=== PATIENT | female | born 1990 | race Hispanic/Latino ===

== ENCOUNTER 2019-01-16 13:27 | Emergency (ER) | payer BC, SELFPAY ==
--- NOTE | 2019-01-16 15:14 | RAD REPORT ---
EXAM DESCRIPTION: RAD - Chest Single View - 01/16/2019 2:52 pm CLINICAL HISTORY: Palpitations, chest discomfort COMPARISON: None. TECHNIQUE: AP portable chest image was obtained 1450 hours . FINDINGS: Lungs are clear. Heart and vasculature are normal. No measurable pleural effusion and no p neumothorax. No acute bony abnormality seen. No acute aortic findings suspected. IMPRESSION: No acute cardiopulmonary process.
[2019-01-16 15:44] LABS: Urine Blood TRACE (NEG); Urine Glucose NEGATIVE (NEG); Urine Protein NEGATIVE (NEG)
[2019-01-16 15:47] LABS: Absolute Lymphocytes (CBC) 1.8 K/uL (0.7-4.9); Absolute Monocytes 0.4 K/uL (0.1-1.3); Absolute Neutrophil 8.6 K/uL (1.8-8.0); Basophils % 0.2 % (0-1.3); Eosinophils % 0.4 % (0-4.4); Hematocrit 39.8 % (36.0-45.0); Lymphocytes % 16.4 % (15.3-44.8); MPV 11.6 fL (7.6-11.3); RBC Red Blood Cell Count 4.34 M/uL (3.86-4.86)
[2019-01-16 16:53] LABS: BUN Blood Urea Nitrogen 10 mg/dL (7-18); Bicarbonate 26 mmol/L (21-32); Glucose Level 94 mg/dL (74-106); Potassium 3.7 mmol/L (3.5-5.1); Sodium Level 142 mmol/L (136-145); Thyroid Stimulating Hormone 0.748 uIU/mL (0.360-3.740)
--- NOTE | 2019-01-16 16:58 | ER ---
Nurse's Notes [facility] Name: Kathy Aleman Age: 28 yrs Sex: Female : 1990 Arrival Date: 01/16/2019 Time: 13:29 Bed 15 Private MD: Diagnosis: Palpitations Presentation: 01/16 13:36 Presenting complaint: Patient states: intermittent palpitations that began 6 days ago. ss Pt reports that when she feels the palpitations, it makes her very anxious and then she is unable to breath. Transition of care: patient was not received from another setting of care. Onset of symptoms was January 10, 2019. Risk Assessment: Do you want to hurt yourself or someone else? Patient reports no desire to harm self or others. Initial Sepsis Screen: Does the patient meet any 2 criteria? No. Patient's initial sepsis screen is negative. Does the patient have a suspected source of infection? No. Patient's initial sepsis screen is negative. Care prior to arrival: None. 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 - Social history:: Smoking status: Patient/guardian denies using tobacco. - Ebola Screening: : Patient denies exposure to infectious person Patient denies travel to an Ebola-affected area in the 21 days before illness onset. - Family history:: not pertinent. - Hospitalizations: : No recent hospitalization is reported. Screenin:15 Abuse screen: Denies threats or abuse. Denies injuries from another. Nutritional hj screening: No deficits noted. Tuberculosis screening: No symptoms or risk factors identified. Fall Risk None identified. Assessment: 13:43 General: Appears uncomfortable, Behavior is cooperative, anxious, Denies fever, feeling ss ill, fatigue, chills. Pain: Denies pain. Neuro: Level of Consciousness is awake, alert, obeys commands. Cardiovascular: Capillary refill < 3 seconds is brisk in bilateral fingers. Respiratory: Airway is patent Respiratory effort is even, unlabored, Respiratory pattern is regular, symmetrical. EENT: Throat is clear. Derm: Skin is intact, is healthy with good turgor, Skin is pink, warm \T\ dry. normal. 17:15 Pain: Pain does not radiate. hj 17:16 Pain: Pain began 6 days ago;. hj Vital Signs: 13:36 BP 147 / 96; Pulse 102; Resp 18; Temp 98.6(TE); Pulse Ox 100% on R/A; Weight 74.84 kg; ss Height 5 ft. 4 in. (162.56 cm); Pain 0/10; 17:14 BP 115 / 81; Pulse 72; Resp 18; Pulse Ox 100% on R/A; hj 13:36 Body Mass Index 28.32 (74.84 kg, 162.56 cm) ED Course: 13:29 Patient arrived in ED. rg4 13:37 Triage completed. ss 13:38 Arm band placed on left wrist. ss 13:52 Ferdinand Franco MD is Attending Physician. rn 13:52 EKG done, by body technician/painter. reviewed by Ferdinand Franco MD. at1 14:52 XRAY Chest (1 view) In Process Unspecified. EDMS 14:52 Gato Saunders RN is Primary Nurse. jl7 16:57 Anton Siddiqui MD is Referral Physician. rn 17:15 Patient has correct armband on for positive identification. Placed in gown. Bed in low hj position. Call light in reach. Side rails up X 1. Adult w/ patient. 17:15 No provider procedures requiring assistance completed. IV discontinued, intact, hj bleeding controlled, No redness/swelling at site. Pressure dressing applied. Patient maintains SpO2 saturation greater than 95% on room air. 17:16 net developer on. Pulse ox on. NIBP on. hj Administered Medications: No medications were administered Outcome: 16:58 Discharge ordered by . rn 17:15 Discharged to home ambulatory, with family. hj 17:15 Condition: stable 17:15 Discharge instructions given to patient, family, Instructed on discharge instructions, follow up and referral plans. Demonstrated understanding of instructions, follow-up care. 17:17 Patient left the ED. hj Signatures: Dispatcher [employer] EDMS Ferdinand Franco MD MD rn Smirch, Shelby, RN RN Eleanor Daniels, research and development scientist EKG Tat1 Mayank Fleming, RN RN Eunice Law rg4 Gato Saunders RN RN jl7 Corrections: (The following items were deleted from the chart) 13:44 13:43 General: Appears uncomfortable, Behavior is calm, cooperative, Denies fever, ss feeling ill, fatigue, chills, ss
--- NOTE | 2019-01-16 16:58 | EDPHYS ---
Physician Documentation [facility] Name: Kathy Aleman Age: 28 yrs Sex: Female : 1990 Arrival Date: 01/16/2019 Time: 13:29 Bed 15 Private MD: ED Physician Ferdinand Franco HPI: 01/16 16:22 This 28 yrs old Female presents to ER via Ambulatory with complaints of rn Palpitations, Chest Pressure. 16:22 The patient presents with a history of heart racing. Context: The symptoms occur at rn rest. Onset: The symptoms/episode began/occurred 1 week(s) ago. Duration: The patient or guardian reports multiple episodes, that are intermittent. Modifying factors: The symptoms are aggravated by nothing. The symptoms are alleviated by nothing. Severity of symptoms: At their worst the symptoms were moderate in the emergency department the symptoms have improved. The patient has not experienced similar symptoms in the past. The patient has not recently seen a physician. Reports mother with thyroid problems, has been having several episodes of tachycardia and palpitations where heart rate goes up to 140s, no syncope, chest feels tight during episodes, last for a few minutes, calms herself down and goes away on its own. Currently asymptomatic. . 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 - Social history:: Smoking status: Patient/guardian denies using tobacco. - Ebola Screening: : Patient denies exposure to infectious person Patient denies travel to an Ebola-affected area in the 21 days before illness onset. - Family history:: not pertinent. - Hospitalizations: : No recent hospitalization is reported. ROS: 16:22 Constitutional: Negative for fever, chills, and weight loss, Eyes: Negative for injury, rn pain, redness, and discharge, Neck: Negative for injury, pain, and swelling, Cardiovascular: Negative for edema Respiratory: Negative for shortness of breath, cough, wheezing, and pleuritic chest pain, Abdomen/GI: Negative for abdominal pain, nausea, vomiting, diarrhea, and constipation, MS/Extremity: Negative for injury and deformity, Skin: Negative for injury, rash, and discoloration, Neuro: Negative for headache, weakness, numbness, tingling, and seizure. Exam: 16:22 Constitutional: This is a well developed, well nourished patient who is awake, alert, rn and in no acute distress. Head/Face: Normocephalic, atraumatic. Eyes: Pupils equal round and reactive to light, extra-ocular motions intact. Lids and lashes normal. Conjunctiva and sclera are non-icteric and not injected. Cornea within normal limits. Periorbital areas with no swelling, redness, or edema. ENT: MMM Cardiovascular: Regular rate and rhythm with a normal S1 and S2. No gallops, murmurs, or rubs. No JVD. No pulse deficits. Respiratory: Lungs have equal breath sounds bilaterally, clear to auscultation. No increased work of breathing, no retractions or nasal flaring. Skin: Warm, dry with normal turgor. Normal color with no rashes, no lesions, and no evidence of cellulitis. MS/ Extremity: Pulses equal, no cyanosis. Neurovascular intact. Full, normal range of motion. Equal circumference. Neuro: Awake and alert, GCS 15, oriented to person, place, time, and situation. Cranial nerves II-XII grossly intact. Motor strength 5/5 in all extremities. Sensory grossly intact. Cerebellar exam normal. Normal gait. Vital Signs: 13:36 BP 147 / 96; Pulse 102; Resp 18; Temp 98.6(TE); Pulse Ox 100% on R/A; Weight 74.84 kg; ss Height 5 ft. 4 in. (162.56 cm); Pain 0/10; 17:14 BP 115 / 81; Pulse 72; Resp 18; Pulse Ox 100% on R/A; hj 13:36 Body Mass Index 28.32 (74.84 kg, 162.56 cm) ss MDM: 13:52 Patient medically screened. rn 16:56 Data reviewed: vital signs, nurses notes, lab test result(s), EKG, radiologic studies, rn and as a result, I will discharge patient. Counseling: I had a detailed discussion with the patient and/or guardian regarding: the historical points, exam findings, and any diagnostic results supporting the discharge/admit diagnosis, lab results, radiology results, the need for outpatient follow up, to return to the emergency department if symptoms worsen or persist or if there are any questions or concerns that arise at home. Response to treatment: the patient's condition has returned to base line, and as a result, I will discharge patient. Special discussion: I discussed with the patient/guardian in detail that at this point there is no indication for admission to the hospital. It is understood, however, that if the symptoms persist or worsen the patient needs to return immediately for re-evaluation. Further emergent ED testing is not indicated at this point in time. I discussed with the patient/guardian in detail the need to arrange with the PCP or specialist further outpatient testing, holter. Based on the history and exam findings, there is no indication for further emergent testing or inpatient evaluation. I discussed with the patient/guardian the need to see the wall taper helper for further evaluation of the symptoms. 01/16 14:02 Order name: CBC with Diff; Complete Time: 16:37 rn 01/16 14:02 Order name: Basic Metabolic Panel; Complete Time: 16:55 rn 01/16 14:02 Order name: TSH; Complete Time: 16:55 rn 01/16 14:02 Order name: T4 Free; Complete Time: 16:55 rn 01/16 15:41 Order name: Urine Dipstick--Ancillary (enter results); Complete Time: 16:37 bd 01/16 15:41 Order name: Urine --Ancillary (enter results); Complete Time: 16:37 bd 01/16 13:38 Order name: EKG; Complete Time: 13:38 ss 01/16 13:38 Order name: EKG - Nurse/Tech; Complete Time: 13:46 ss 01/16 14:02 Order name: IV Start; Complete Time: 16:46 rn 01/16 14:02 Order name: XRAY Chest (1 view); Complete Time: 15:34 rn 01/16 14:02 Order name: Urine Dipstick-Ancillary (obtain specimen); Complete Time: 16:44 rn 01/16 14:02 Order name: Urine Test (obtain specimen); Complete Time: 16:43 rn Administered Medications: No medications were administered Disposition: 01/16/19 16:58 Discharged to Home. Impression: Palpitations. - Condition is Stable. - Discharge Instructions: Holter Monitoring, Palpitations. - Medication Reconciliation Form, Thank You Letter, Antibiotic Education, Prescription Opioid Use form. - Follow up: Anton Siddiqui MD; When: As needed; Reason: Recheck today's complaints, Re-evaluation by your physician. - Problem is new. - Symptoms have improved. Signatures: Dispatcher [employer] EDMS Ferdinand Franco MD MD rn Smirch, Shelby, RN RN ss Joaquin, Henry, RN RN hj Corrections: (The following items were deleted from the chart) 17:17 16:58 01/16/2019 16:58 Discharged to Home. Impression: Palpitations. Condition is hj Stable. Forms are Medication Reconciliation Form, Thank You Letter, Antibiotic Education, Prescription Opioid Use. Follow up: Anton Siddiqui; When: As needed; Reason: Recheck today's complaints, Re-evaluation by your physician. Problem is new. Symptoms have improved. rn
--- NOTE | 2019-01-17 11:41 | EKG ---
Test Date: 2019-01-16 Test Time: 13:42:43 Gate Services Supervisor: KIESHA MEASUREMENT RESULTS: Intervals: Rate: 111 UT: 142 QRSD: 74 QT: 340 QTc: 462 [place]: P: 70 UT: 142 QRS: 66 T: 49 INTERPRETIVE STATEMENTS: Sinus tachycardia Otherwise normal ECG No previous ECG available for comparison Electronically Signed On 01-16-19 16:07:29 CDT by Lionel Wan
== END 2019-01-16 17:17 | disposition home or self-care (01) ==
LOC: ER 13:27
DX: R00.2 Palpitations (principal)
CPT/HCPCS: 36415; 71045; 80048; 81003; 81025; 84439; 84443; 85025; 93005; 99284

== ENCOUNTER 2019-01-18 13:23 | Emergency (ER) | payer BC ==
[2019-01-18 16:02] LABS: Absolute Lymphocytes (CBC) 1.9 K/uL (0.7-4.9); Absolute Monocytes 0.4 K/uL (0.1-1.3); Absolute Neutrophil 8.9 K/uL (1.8-8.0); Basophils % 0.3 % (0-1.3); Eosinophils % 0.4 % (0-4.4); Hematocrit 40.4 % (36.0-45.0); Lymphocytes % 16.6 % (15.3-44.8); MPV 11.9 fL (7.6-11.3); Monocytes % 3.6 % (3.3-12.3); RBC Red Blood Cell Count 4.33 M/uL (3.86-4.86)
[2019-01-18 16:06] LABS: Protime INR 0.96
[2019-01-18 16:13] LABS: ALT/SGPT 24 U/L (12-78); AST/SGOT 14 U/L (15-37); Albumin 3.9 g/dL (3.4-5.0); Alkaline Phosphatase 63 U/L (45-117); BUN Blood Urea Nitrogen 11 mg/dL (7-18); Bicarbonate 23 mmol/L (21-32); Bilirubin Direct 0.1 mg/dL (0-0.2); Bilirubin Total 0.4 mg/dL (0.2-1.0); Glucose Level 80 mg/dL (74-106); Magnesium 2.3 mg/dL (1.8-2.4); NT PRO-BNP 88 pg/mL (<125); Potassium 3.5 mmol/L (3.5-5.1); Protein, Total 7.7 g/dL (6.4-8.2); Sodium Level 142 mmol/L (136-145); Troponin (Emerg Dept Use Only) < 0.02 ng/mL (0.0-0.045)
--- NOTE | 2019-01-18 16:54 | RAD REPORT ---
EXAM DESCRIPTION: CT - Chest For Pe Angio - 01/18/2019 4:39 pm CLINICAL HISTORY: Chest pain, shortness of breath COMPARISON: Chest films same date. TECHNIQUE: Dynamically enhanced 3 mm thick images of the chest were obtained during administration o f approximately 150mL Isovue 370 IV contrast. Coronal and oblique MIP reconstruction images were gene rated and reviewed. Exam utilizes a protocol to evaluate the pulmonary arterial tree. All CT scans are performed using dose optimization technique as appropriate and may include automated exposure control or mA/KV adjustment according to patient size. FINDINGS: No pulmonary emboli are confirmed on this study. Exam has motion degradation limitation. T his creates some heterogeneity in the small or far peripheral branches. This also limits assessment o f the lung parenchyma. The aorta as imaged shows no acute or suspicious finding. No pericardial thickening or effusion. No focal mass or consolidation. No pleural effusion or pleural thickening. No mediastinal or hilar suspicious masses. No chest wall masses or abnormal axillary lymphadenopathy. IMPRESSION: No pulmonary emboli identified. No other significant or suspicious findings.
--- NOTE | 2019-01-18 17:34 | EDPHYS ---
Physician Documentation [facility] Name: Kathy Aleman Age: 28 yrs Sex: Female : 1990 Arrival Date: 01/18/2019 Time: 13:26 Bed 15 Private MD: ED Physician Brady Carter HPI: 01/18 14:00 This 28 yrs old Female presents to ER via Ambulatory with complaints of Chest cp Pressure, Back Pain, Breathing Difficulty. 14:00 The patient or guardian reports chest pain that is located primarily in the anterior cp chest wall. 14:00 The pain radiates to back. Associated signs and symptoms: Pertinent positives: cp shortness of breath. Duration: The patient or guardian reports a single episode, that is still ongoing, and unchanged. 14:00 The patient has been recently seen at the [facility] Emergency cp Department, this week, for similar complaints instructed to f/u with skatesman. 14:00 The chest pain is described as a pressure. 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 - Social history:: Smoking status: . - Ebola Screening: : Patient denies travel to an Ebola-affected area in the 21 days before illness onset. ROS: 14:05 Constitutional: Negative for body aches, chills, fever, poor PO intake. cp 14:05 Eyes: Negative for injury, pain, redness, and discharge. cp 14:05 Neck: Negative for pain with movement, pain at rest, stiffness. 14:05 Cardiovascular: Positive for chest pain, Negative for edema, palpitations. 14:05 Respiratory: Positive for shortness of breath, Negative for cough, wheezing. 14:05 Abdomen/GI: Negative for abdominal pain, nausea, vomiting, and diarrhea. 14:05 Back: Positive for radiated pain. 14:05 : Negative for urinary symptoms, vaginal bleeding. 14:05 Skin: Negative for rash. 14:05 Neuro: Negative for altered mental status, headache, weakness. 14:05 All other systems are negative. Exam: 13:45 ECG was reviewed by the Attending Physician. cp 14:10 Constitutional: The patient appears in no acute distress, alert, awake, cp non-diaphoretic, non-toxic, well developed, well nourished. 14:10 Head/Face: Normocephalic, atraumatic. Eyes: Pupils equal round and reactive to light, cp extra-ocular motions intact. Lids and lashes normal. Conjunctiva and sclera are non-icteric and not injected. Cornea within normal limits. Periorbital areas with no swelling, redness, or edema. ENT: Nares patent. No nasal discharge, no septal abnormalities noted. Tympanic membranes are normal and external auditory canals are clear. Oropharynx with no redness, swelling, or masses, exudates, or evidence of obstruction, uvula midline. Mucous membranes moist. Chest/axilla: Normal chest wall appearance and motion. Nontender with no deformity. No lesions are appreciated. 14:10 Cardiovascular: Rate: tachycardic, Rhythm: regular, Pulses: Pulses are 2+ in right radial artery and left radial artery. Edema: is not appreciated, JVD: is not appreciated. 14:10 Respiratory: the patient does not display signs of respiratory distress, Respirations: normal, no use of accessory muscles, no retractions, no splinting, no tachypnea, labored breathing, is not present, Breath sounds: are clear throughout, no decreased breath sounds, no stridor, no wheezing. 14:10 Abdomen/GI: Inspection: abdomen appears normal, Palpation: abdomen is soft and non-tender, in all quadrants. 14:10 Back: pain, that is mild, of the between shoulder blades, ROM is normal. 14:10 Skin: no rash present. 14:10 Neuro: Orientation: to person, place \T\ time. Mentation: is normal, Cerebellar function: is grossly normal, Motor: moves all fours, strength is normal, Sensation: is normal. Vital Signs: 13:34 BP 125 / 69; Pulse 103; Resp 18; Temp 97.8; Pulse Ox 100% on R/A; Weight 72.57 kg (R); tw2 Height 5 ft. 4 in. (162.56 cm) (R); Pain 8/10; 14:30 BP 112 / 72; Pulse 91; Resp 18; Pulse Ox 99% on R/A; ph 15:38 BP 108 / 71; Pulse 81; Resp 18; Pulse Ox 100% on R/A; ph 16:45 BP 111 / 76; Pulse 101; Resp 20; Pulse Ox 99% on R/A; ph 18:00 BP 112 / 72; Pulse 94; Resp 18; Temp 97.6; Pulse Ox 99% on R/A; ph 13:34 Body Mass Index 27.46 (72.57 kg, 162.56 cm) tw2 MDM: 13:50 Patient medically screened. cp 15:20 Differential diagnosis: abnormal EKG, acute pericarditis, costochondritis, pleurisy, cp pneumonia, pneumothorax, pulmonary embolus, thoracic aortic disection. 17:32 Data reviewed: vital signs, nurses notes, lab test result(s), EKG, radiologic studies, cp CT scan. 17:32 Test interpretation: by ED physician or midlevel provider: ECG. Counseling: I had a cp detailed discussion with the patient and/or guardian regarding: the historical points, exam findings, and any diagnostic results supporting the discharge/admit diagnosis, lab results, radiology results, the need for outpatient follow up, a skatesman, to return to the emergency department if symptoms worsen or persist or if there are any questions or concerns that arise at home. Response to treatment: the patient's symptoms have markedly improved after treatment, and as a result, I will discharge patient. Special discussion: Based on the patient's history, exam, and Dx evaluation, there is no indication for emergent intervention or inpatient Tx. It is understood by the patient/guardian that if the Sx's persist or worsen they need to return immediately for re-evaluation. 01/18 15:04 Order name: D-Dimer; Complete Time: 16:15 01/18 16:15 Interpretation: Abnormal: D-DIMER 641. 01/18 15:04 Order name: Basic Metabolic Panel; Complete Time: 16:15 01/18 17:26 Interpretation: Normal except: CL 109. 01/18 15:04 Order name: CBC with Diff; Complete Time: 16:15 cp 01/18 17:27 Interpretation: Normal except: WBC 11.3; MPV 11.9; GLORIA% 79.1; NEUT A 8.9. 01/18 15:04 Order name: LFT's; Complete Time: 16:15 cp 01/18 17:27 Interpretation: Normal except: AST 14; GLOB 3.8; A/G 1.0. cp 01/18 15:04 Order name: Magnesium; Complete Time: 16:15 cp 01/18 15:04 Order name: NT PRO-BNP; Complete Time: 16:15 cp 01/18 13:51 Order name: EKG; Complete Time: 13:51 cp 01/18 13:51 Order name: EKG - Nurse/Tech; Complete Time: 14:15 cp 01/18 15:04 Order name: PT-INR; Complete Time: 16:15 cp 01/18 15:04 Order name: Troponin (emerg Dept Use Only); Complete Time: 16:15 cp 10 16:15 Order name: CT Chest For PE Angio; Complete Time: 17:21 cp 01/18 17:22 Interpretation: Report reviewed. 01/18 15:04 Order name: Cardiac monitoring; Complete Time: 15:50 cp 01/18 15:04 Order name: IV Saline Lock; Complete Time: 15:50 cp 01/18 15:04 Order name: Labs collected and sent; Complete Time: 15:50 cp 01/18 15:04 Order name: O2 Per Protocol; Complete Time: 15:50 cp 01/18 15:04 Order name: O2 Sat Monitoring; Complete Time: 15:50 cp EC:45 Rate is 89 beats/min. Rhythm is regular. KS interval is normal. QRS interval is normal. cp QT interval is normal. T waves are Flattened in lead III. Interpreted by me. Reviewed by me. Administered Medications: 14:00 Drug: Xopenex 1.25 mg Route: Inhalation; ph 18:21 Not Given (Patient Refused): TORadol 30 mg IVP once ph Disposition: 01/19 06:46 Co-signature as Attending Physician, Brady Carter MD I agree with the assessment and kdr plan of care. Disposition: 01/18/19 17:33 Discharged to Home. Impression: Other chest pain, Shortness of breath. - Condition is Stable. - Discharge Instructions: Nonspecific Chest Pain, Shortness of Breath. - Prescriptions for Ibuprofen 800 mg Oral Tablet - take 1 tablet by ORAL route every 8 hours As needed take with food; 30 tablet. Albuterol Sulfate 90 mcg/actuation - inhale 1-2 puff by INHALATION route every 4-6 hours; 1 Inhaler. - Medication Reconciliation Form, Thank You Letter, Antibiotic Education, Prescription Opioid Use form. - Follow up: Lionel Wan MD; When: 1 - 2 days; Reason: Recheck today's complaints. - Problem is new. - Symptoms have improved. Signatures: Dispatcher [employer] EDMS Brady Carter MD MD [facility] Kaitlin Cam RN RN Jerel Gavin PA PA Jackeline Norris RN RN tw2 Corrections: (The following items were deleted from the chart) 01/18 18:21 17:33 01/18/2019 17:33 Discharged to Home. Impression: Other chest pain; Shortness of ph breath. Condition is Stable. Forms are Medication Reconciliation Form, Thank You Letter, Antibiotic Education, Prescription Opioid Use. Follow up: Lionel Wan; When: 1 - 2 days; Reason: Recheck today's complaints. Problem is new. Symptoms have improved. cp 01/19 18:08 01/18 14:00 The patient has been recently seen at the [facility] cp Emergency Department, last week, for similar complaints instructed to f/u with skatesman, cp
--- NOTE | 2019-01-18 17:34 | ER ---
Nurse's Notes [facility] Name: Kathy Aleman Age: 28 yrs Sex: Female : 1990 Arrival Date: 01/18/2019 Time: 13:26 Bed 15 Private MD: Diagnosis: Other chest pain;Shortness of breath Presentation: 01/18 13:33 Presenting complaint: Patient states: i have been having trouble breathing an hour ago, tw2 i came Wednesday and they told me to see a educational resource coordinator but i am in the process, i feel like pressure in my back. Transition of care: patient was not received from another setting of care. Onset of symptoms was January 18, 2019. Risk Assessment: Do you want to hurt yourself or someone else? Patient reports no desire to harm self or others. Initial Sepsis Screen: Does the patient meet any 2 criteria? No. Patient's initial sepsis screen is negative. Does the patient have a suspected source of infection? No. Patient's initial sepsis screen is negative. Care prior to arrival: None. 13:33 Method Of Arrival: Ambulatory tw2 13:33 Acuity: MINGO 3 tw2 Triage Assessment: 13:35 General: Appears well groomed, Behavior is anxious. Pain: Complains of pain in chest. tw2 Cardiovascular: Reports chest pain, shortness of breath. 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 - Social history:: Smoking status: . - Ebola Screening: : Patient denies travel to an Ebola-affected area in the 21 days before illness onset. Screenin:13 Fall Risk None identified. ph 15:40 Abuse screen: Denies threats or abuse. Nutritional screening: No deficits noted. ph 15:40 Tuberculosis screening: No symptoms or risk factors identified. ph Assessment: 14:00 General: Appears in no apparent distress. uncomfortable, well groomed, Behavior is ph cooperative, appropriate for age, anxious. Pain: Complains of pain in anterior aspect of right upper chest Pain radiates to right scapular area Pain began suddenly, Also complains of shortness of breath. Neuro: Level of Consciousness is awake, alert, obeys commands, Oriented to person, place, time, situation. Cardiovascular: Reports chest pain, shortness of breath, Denies diaphoresis, nausea, vomiting, Capillary refill < 3 seconds Patient's skin is warm and dry. Chest pain is located in right anterior chest wall radiates to right back. Respiratory: Airway is patent Respiratory effort is even, Respiratory pattern is tachypnea. GI: No signs and/or symptoms were reported involving the gastrointestinal system. Derm: Skin is intact, is healthy with good turgor, Skin is pink, warm \\T\\ dry. Musculoskeletal: Circulation, motion, and sensation intact. Range of motion: intact in all extremities. 15:33 General: Appears in no apparent distress. uncomfortable. Neuro: Level of Consciousness ph is awake, alert, obeys commands, Oriented to person, place, time, situation, Speech is normal. Cardiovascular: Reports PT stated she had "pressure on her chest" Denies Capillary refill < 3 seconds Pulses are all present. Respiratory: Reports shortness of breath Airway is patent Trachea midline Respiratory effort is even, unlabored, Respiratory pattern is regular, symmetrical. Vital Signs: 13:34 BP 125 / 69; Pulse 103; Resp 18; Temp 97.8; Pulse Ox 100% on R/A; Weight 72.57 kg (R); tw2 Height 5 ft. 4 in. (162.56 cm) (R); Pain 8/10; 14:30 BP 112 / 72; Pulse 91; Resp 18; Pulse Ox 99% on R/A; ph 15:38 BP 108 / 71; Pulse 81; Resp 18; Pulse Ox 100% on R/A; ph 16:45 BP 111 / 76; Pulse 101; Resp 20; Pulse Ox 99% on R/A; ph 18:00 BP 112 / 72; Pulse 94; Resp 18; Temp 97.6; Pulse Ox 99% on R/A; ph 13:34 Body Mass Index 27.46 (72.57 kg, 162.56 cm) tw2 ED Course: 13:26 Patient arrived in ED. mr 13:32 EKG completed in triage. Results shown to MD. tw2 13:32 Arm band placed on. ph 13:32 Patient has correct armband on for positive identification. Placed in gown. Bed in low ph position. Call light in reach. 13:34 Triage completed. tw2 13:38 Kaitlin Cam, RN is Primary Nurse. ph 13:47 EKG done, by medical technologist prn. reviewed by Brady Carter MD. sm3 13:50 Jerel Gavin PA is PHCP. cp 13:50 Brady Carter MD is Attending Physician. cp 15:10 Inserted saline lock: 22 gauge in right antecubital area, using aseptic technique. ph 15:13 Patient maintains SpO2 saturation greater than 95% on room air. ph 15:59 Pulse ox on. NIBP on. Door closed. Noise minimized. Warm blanket given. ph 16:40 CT Chest For PE Angio In Process Unspecified. EDMS 17:32 Lionel Wan MD is Referral Physician. cp 18:00 IV discontinued, intact, bleeding controlled, No redness/swelling at site. Pressure ph dressing applied. 18:04 No provider procedures requiring assistance completed. ph Administered Medications: 14:00 Drug: Xopenex 1.25 mg Route: Inhalation; ph 18:21 Not Given (Patient Refused): TORadol 30 mg IVP once ph Outcome: 17:33 Discharge ordered by MD. cp 18:21 Patient left the ED. ph 18:21 Discharged to home ambulatory. ph 18:21 Condition: good 18:21 Discharge instructions given to patient, Instructed on discharge instructions, follow up and referral plans. medication usage, Demonstrated understanding of instructions, follow-up care, medications, Prescriptions given X 2. Signatures: Dispatcher [employer] EDNM Betty Salazar mr Kaitlin Cam, RN RN Jerel Gavin PA PA cp Jackeline Norris RN RN tw2 Temi Rios sm3 Corrections: (The following items were deleted from the chart) 15:43 13:32 Arm band placed on tw2 ph
--- NOTE | 2019-01-18 17:46 | EKG ---
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
== END 2019-01-18 18:21 | disposition home or self-care (01) ==
LOC: ER 13:23
DX: R07.89 Other chest pain (principal); R06.02 Shortness of breath
CPT/HCPCS: 36415; 71275; 80048; 80076; 83735; 83880; 84484; 85025; 85379; 85610; 93005; 99285; Q9967

== ENCOUNTER 2024-11-17 19:27 | Emergency (ER) | payer SELFPAY, OTHER ==
--- OUTSIDE RECORDS SUMMARY | 2024-11-17 19:30 | XMS REPORT | Continuity of Care Document ---
Author Name Unknown Address [address] [place] [address] [address] [place] [address] [facility] Address [address] [facility]. [address] [place] [address] Care Team Providers Care Subcontracts Manager Name Role Phone Sammy Attending Clinician Unavailable Colton Attending Clinician Unavailable Sammy Admitting Clinician Unavailable Colton Admitting Clinician Unavailable Payers Payer Name Policy Type Policy Number Effective Date Expirati on Date Source [facility]: [employer] ([employer]) [id number] 2022 00:00:00 2023 00:00:00 [facility] (O) [id number] [facility] [id number] Problems Condition Name Condition Details Condition Category Status Onset Date Resolution Date Last Treatment Date Treating Clinician Comments Source Rosacea Rosacea Problem Active 2020-10 00:00: 00 [facility] Helicobact er pylori-ass ociated gastritis Helicobact er Pylori-ass ociated Gastritis Problem Active 05-09 00:00: 00 [facility] Gastroesop hageal reflux disease without esophagiti s Gastroesop hageal Reflux Disease without Esophagiti s Problem Active 05-09 00:00: 00 [facility] Chronic idiopathic constipati on Chronic Idiopathic Constipati on Problem Active 05-09 00:00: 00 [facility] Steatosis of liver Steatosis of Liver Problem Active 10-29 00:00: 00 [facility] Vitamin D deficiency Vitamin D Deficiency Problem Active 2018-10 00:00: 00 [facility] Acne Acne Problem Active 07-04 00:00: 00 [facility] Anxiety disorder Anxiety Disorder Problem Active 04-10 00:00: [address] [facility] Depressive disorder Depressive Disorder Problem Active 04-10 00:00: [address] [facility] Mitral valve prolapse Mitral Valve Prolapse Problem Active 04-10 00:00: [address] [facility] Social History Smoking Status Start Date Stop Date Source Never Smoker [facility] Medications Ordered Medication Name Filled Medication Name Start Date Stop Date Current Medication? Ordering Clinician Indication Dosage Frequency Signature (SIG) Comments Components Source Estarylla 0.25 mg-35 mcg tablet TAKE ONE (1) TABLET(S) BY MOUTH ONCE A DAY. Estarylla 0.25 mg-35 mcg tablet TAKE ONE (1) TABLET(S) BY MOUTH ONCE A DAY. No Estarylla 0.25 mg-35 mcg tablet TAKE ONE (1) TABLET(S) BY MOUTH ONCE A DAY. [facility] Vital Signs Vital Name Observation Time Observation Value Comments S ource BP Diastolic 2024-08-31 00:00:00 78 mm[Hg] [facility] Height 2024-08-31 00:00:00 64 [in_i] [facility] Body Weight 2024-08-31 00:00:00 180.4 [lb_av] [facility] BP Systolic 2024-08-31 00:00:00 117 mm[Hg] [facility] BMI (Body Mass Index) 2024-08-31 00:00:00 31 kg/m2 [facility] BMI (Body Mass Index) 2023-08-31 00:00:00 29.5 kg/m2 [facility] Body Weight 2023-08-31 00:00:00 164 [lb_av] [facility] BP Systolic 2023-08-31 00:00:00 121 mm[Hg] [facility] Height 2023-08-31 00:00:00 62.5 [in_i] [facility] BP Diastolic 2023-08-31 00:00:00 83 mm[Hg] [facility] BP Diastolic 2022-09-07 00:00:00 83 mm[Hg] [facility] Height 2022-09-07 00:00:00 62.5 [in_i] [facility] BMI (Body Mass Index) 2022-09-07 00:00:00 28.8 kg/m2 [facility] BP Systolic 2022-09-07 00:00:00 128 mm[Hg] [facility] Body Weight 2022-09-07 00:00:00 160 [lb_av] [facility] BP Diastolic 2022-05-11 00:00:00 85 mm[Hg] [facility] Height 2022-05-11 00:00:00 62.5 [in_i] [facility] BMI (Body Mass Index) 2022-05-11 00:00:00 28.3 kg/m2 [facility] BP Systolic 2022-05-11 00:00:00 121 mm[Hg] [facility] Body Weight 2022-05-11 00:00:00 157.4 [lb_av] [facility] Height 2022-01-02 00:00:00 62.5 [in_i] [facility] BMI (Body Mass Index) 2022-01-02 00:00:00 28.8 kg/m2 [facility] Body Weight 2022-01-02 00:00:00 160 [lb_av] [facility] BP Diastolic 2021-09-09 00:00:00 82 mm[Hg] [facility] Height 2021-09-09 00:00:00 62.5 [in_i] [facility] BMI (Body Mass Index) 2021-09-09 00:00:00 30.7 kg/m2 [facility] BP Systolic 2021-09-09 00:00:00 123 mm[Hg] [facility] Body Weight 2021-09-09 00:00:00 170.6 [lb_av] [facility] Height 2021-03-11 00:00:00 62.5 [in_i] [facility] BMI (Body Mass Index) 2021-03-11 00:00:00 30.6 kg/m2 [facility] Body Weight 2021-03-11 00:00:00 170 [lb_av] [facility] BP Diastolic 2020-09-09 00:00:00 83 mm[Hg] [facility] Height 2020-09-09 00:00:00 62.5 [in_i] [facility] BMI (Body Mass Index) 2020-09-09 00:00:00 31.6 kg/m2 [facility] BP Systolic 2020-09-09 00:00:00 118 mm[Hg] [facility] Body Weight 2020-09-09 00:00:00 175.8 [lb_av] [facility] Height 2020-05-09 00:00:00 62.5 [in_i] [facility] BMI (Body Mass Index) 2020-05-09 00:00:00 28.8 kg/m2 [facility] Body Weight 2020-05-09 00:00:00 160 [lb_av] [facility] BP Diastolic 2019-09-28 00:00:00 89 mm[Hg] [facility] Height 2019-09-28 00:00:00 62.5 [in_i] [facility] BMI (Body Mass Index) 2019-09-28 00:00:00 27.4 kg/m2 [facility] BP Systolic 2019-09-28 00:00:00 132 mm[Hg] [facility] Body Weight 2019-09-28 00:00:00 152 [lb_av] [facility] BP Diastolic 2019-08-21 00:00:00 82 mm[Hg] [facility] Height 2019-08-21 00:00:00 62.5 [in_i] [facility] BMI (Body Mass Index) 2019-08-21 00:00:00 27.4 kg/m2 [facility] BP Systolic 2019-08-21 00:00:00 118 mm[Hg] [facility] Body Weight 2019-08-21 00:00:00 152.2 [lb_av] [facility] BP Diastolic 2019-07-04 00:00:00 70 mm[Hg] [facility] Height 2019-07-04 00:00:00 62.5 [in_i] [facility] BMI (Body Mass Index) 2019-07-04 00:00:00 27.3 kg/m2 [facility] BP Systolic 2019-07-04 00:00:00 120 mm[Hg] [facility] Body Weight 2019-07-04 00:00:00 151.6 [lb_av] [facility] BP Diastolic 2019-04-10 00:00:00 78 mm[Hg] [facility] Height 2019-04-10 00:00:00 62.5 [in_i] [facility] BMI (Body Mass Index) 2019-04-10 00:00:00 23 kg/m2 [facility] BP Systolic 2019-04-10 00:00:00 118 mm[Hg] [facility] Body Weight 2019-04-10 00:00:00 128 [lb_av] [facility] Procedures Procedure Date / Time Performed Performing Clinician Source XR, thoracic spine, 2 view 2023-08-31 00:00:00 [facility] US, abdomen, complete 2022-01-02 00:00:00 [facility] US, pelvis, transabdominal + transvaginal 2022-01-02 00:00:00 [facility] electrocardiogram 2020-09-09 00:00:00 [facility] US, abdomen, complete 2019-09-28 00:00:00 [facility] US, abdomen, complete 2019-08-21 00:00:00 [facility] US, pelvis, transabdominal + transvaginal 2019-08-21 00:00:00 [facility] Encounters Start Date/Time End Date/Time Encounter Type Admission Type Attending Clinicians Care Facility Care Department Encounter ID Source 2024-08-31 00:00:00 2024-08-31 00:00:00 Terry Rocha MD: [id number] [facility], [address], [place] [address] , Ph. [facility] [place] - [facility] - [place] - VM_HOU_Shad [facility] [id number] [facility] 2023-12-10 00:00:00 2023-12-10 00:00:00 Outpatient Bui_Q_HOU_M D VFP [facility] [id number] [facility] 2023-11-05 00:00:00 2023-11-05 00:00:00 Outpatient Bui_Q_HOU_M D VFP VF [id number] [facility] 2023-09-30 00:00:00 2023-09-30 00:00:00 Outpatient Bui_Q_HOU_M D VFP VFP [id number] [facility] 2023-08-31 00:00:00 2023-08-31 00:00:00 Outpatient Bui_Q_HOU_M D VFP VFP [id number] [facility] 2023-08-31 00:00:00 2023-08-31 00:00:00 Terry Rocha MD: [id number] [facility], [address], [place] [address] , Ph. [facility] [place] - [facility] - [place] - VM_HOU_Shad ow [facility] [id number] [facility] 2023-08-29 00:00:00 2023-08-29 00:00:00 Outpatient Bui_Q_HOU_M D VFP VFP [id number] [facility] 2023-08-29 00:00:00 2023-08-29 00:00:00 Outpatient Bui_Q_WAGDN U VFP VFP [id number] [facility] 2023-02-17 00:00:00 2023-02-17 00:00:00 Outpatient Bui_Q VFP VFP [id number] [facility] 2023-01-02 00:00:00 2023-01-02 00:00:00 Outpatient Bui_Q VFP VFP [id number] [facility] 2023-01-02 00:00:00 2023-01-02 00:00:00 Outpatient Bui_Q_WAGDN U VFP VFP [id number] [facility] 2023-01-02 00:00:00 2023-01-02 00:00:00 Outpatient Bui_Q_WAGDN U VFP VFP [id number] [facility] 2023-01-01 00:00:00 2023-01-01 00:00:00 Outpatient Bui_Q VFP VFP [id number] [facility] 2022-11-26 00:00:00 2022-11-26 00:00:00 Outpatient Bui_Q VFP VFP [id number] [facility] 2022-11-26 00:00:00 2022-11-26 00:00:00 Outpatient Bui_Q VFP VFP [id number] [facility] 2022-10-22 00:00:00 2022-10-22 00:00:00 Outpatient Bui_Q VFP VFP [id number] [facility] 2022-09-17 00:00:00 2022-09-17 00:00:00 Outpatient Bui_Q VFP VFP [id number] [facility] 2022-09-07 00:00:00 2022-09-07 00:00:00 Outpatient Bui_Q VFP VFP [id number] [facility] 2022-09-07 00:00:00 2022-09-07 00:00:00 Outpatient Bui_Q_WAGDN U VFP VFP [id number] [facility] 2022-09-07 00:00:00 2022-09-07 00:00:00 Outpatient Bui_Q VFP VFP [id number] [facility] 2022-09-07 00:00:00 2022-09-07 00:00:00 Terry Rocha MD: [id number] [facility], [address], [place] [address] , [place]. [facility] [place] [facility] [place] VM_YANETU_Maninder [facility] [id number] [facility] 2022-08-01 00:00:00 2022-08-01 00:00:00 Outpatient Bui_Q VFP VFP [id number] [facility] 2022-05-16 00:00:00 2022-05-16 00:00:00 Outpatient Bui_Q_WAGDN U VFP VFP [id number] [facility] 2022-05-11 00:00:00 2022-05-11 00:00:00 Outpatient Bui_Q VFP VFP [id number] [facility] 2022-05-11 00:00:00 2022-05-11 00:00:00 Terry Rocha MD: [id number], [address], [place] [address] , Ph. VFP [place] - [facility] - VM_HOU_Shad ow [facility] [id number] [facility] 2022-05-10 00:00:00 2022-05-10 00:00:00 Outpatient Bui_Q_WAGDN U VFP VFP [id number] [facility] 2022-05-08 00:00:00 2022-05-08 00:00:00 Outpatient Bui_Q VFP VFP [id number] [facility] 2022-04-24 00:00:00 2022-04-24 00:00:00 Outpatient Bui_Q VFP VFP [id number] [facility] 2022-02-03 00:00:00 2022-02-03 00:00:00 Outpatient Bui_Q_WAGDN U VFP VFP [id number] [facility] 2022-01-04 06:03:00 2022-01-04 06:03:00 Outpatient Bui_Q VFP VFP [id number] [facility] 2022-01-02 05:07:00 2022-01-02 05:07:00 Outpatient Bui_Q VFP VFP [id number] [facility] 2022-01-02 00:00:00 2022-01-02 00:00:00 Terry Rocha MD: [id number], [address], [place] [address] , Ph. VFP [place] - [facility] - VM_HOU_Shad ow [facility] [id number] [facility] 2021-12-17 12:05:00 2021-12-17 12:05:00 Outpatient Bui_Q VFP VFP [id number] [facility] 2021-12-12 05:28:00 2021-12-12 05:28:00 Outpatient Bui_Q VFP VFP [id number] [facility] 2021-12-12 05:28:00 2021-12-12 05:28:00 Outpatient Bui_Q VFP VFP [id number] [facility] 2021-12-12 05:28:00 2021-12-12 05:28:00 Outpatient Bui_Q_WAGDN U VFP VFP [id number] [facility] 2021-11-07 04:02:00 2021-11-07 04:02:00 Outpatient Bui_Q VFP VFP [id number] [facility] 2021-10-03 02:07:00 2021-10-03 02:07:00 Outpatient Bui_Q VFP VFP [id number] [facility] 2021-10-03 02:07:00 2021-10-03 02:07:00 Outpatient Bui_Q VFP VFP [id number] [facility] 2021-10-01 10:17:00 2021-10-01 10:17:00 Outpatient Bui_Q VFP VFP [id number] [facility] 2021-09-20 07:44:00 2021-09-20 07:44:00 Outpatient Bui_Q VFP VFP [id number] [facility] 2021-09-09 02:41:00 2021-09-09 02:41:00 Outpatient Bui_Q_WAGDN U VFP VFP [id number] [facility] 2021-09-09 02:41:00 2021-09-09 02:41:00 Outpatient Bui_Q VFP VFP [id number] [facility] 2021-09-09 00:00:00 2021-09-09 00:00:00 Terry Rocha MD: [address] [address] , Ph. VFP [place] - [facility] - VM_HOU_[facility] ([place]) [id number] [facility] 2021-07-20 04:38:00 2021-07-20 04:38:00 Outpatient Bui_Q_WAG VFP VFP [id number] [facility] 2021-07-20 04:38:00 2021-07-20 04:38:00 Outpatient Bui_Q_WAG VFP VFP [id number] [facility] 2021-07-20 04:38:00 2021-07-20 04:38:00 Outpatient Bui_Q_WAGDN U VFP VFP [id number] [facility] 2021-03-25 01:49:00 2021-03-25 01:49:00 Outpatient Bui_Q_WAG VFP VFP [id number] [facility] 2021-03-12 11:42:00 2021-03-12 11:42:00 Outpatient Bui_Q_WAG VFP VFP [id number] [facility] 2021-03-11 01:02:00 2021-03-11 01:02:00 Outpatient Bui_Q_WAG VFP VFP [id number] [facility] 2021-03-11 00:00:00 2021-03-11 00:00:00 Terry Rocha MD: [address] [place] [address] , Ph. VFP [place] - [facility] - VM_HOU_[facility] (WAG) [id number] [facility] 2020-11-29 01:02:00 2020-11-29 01:02:00 Outpatient Bui_Q_WAG VFP VFP [id number] [facility] 2020-11-29 01:02:00 2020-11-29 01:02:00 Outpatient Bui_Q VFP VFP [id number] [facility] 2020-11-29 01:02:00 2020-11-29 01:02:00 Outpatient Bui_Q VFP VFP [id number] [facility] 2020-10-25 01:02:00 2020-10-25 01:02:00 Outpatient Bui_Q_WAG VFP VFP [id number] [facility] 2020-10-25 01:02:00 2020-10-25 01:02:00 Outpatient Bui_Q VFP VFP [id number] [facility] 2020-10-25 01:02:00 2020-10-25 01:02:00 Outpatient Bui_Q VFP VFP [id number] [facility] 2020-10-08 09:43:00 2020-10-08 09:43:00 Outpatient Bui_Q VFP VFP [id number] [facility] 2020-09-20 01:03:00 2020-09-20 01:03:00 Outpatient Bui_Q_WAG VFP VFP [id number] [facility] 2020-09-09 09:54:00 2020-09-09 09:54:00 Outpatient Bui_Q_WAG VFP VFP [id number] [facility] 2020-09-09 09:54:00 2020-09-09 09:54:00 Outpatient Bui_Q VFP VFP [id number] [facility] 2020-09-09 00:00:00 2020-09-09 00:00:00 Terry Rocha MD: [address] [place] [address] , Ph. VFP [place] - [facility] - VM_HOU_[facility] (WAG) [id number] [facility] 2020-09-08 04:33:00 2020-09-08 04:33:00 Outpatient Bui_Q_WAG VFP VFP [id number] [facility] 2020-09-03 08:26:00 2020-09-03 08:26:00 Outpatient Bui_Q_WAG VFP VFP [id number] [facility] 2020-05-30 02:39:00 2020-05-30 02:39:00 Outpatient Bui_Q VFP VFP [id number] [facility] 2020-05-30 02:39:00 2020-05-30 02:39:00 Outpatient Bui_Q VFP VFP [id number] [facility] 2020-05-18 05:02:00 2020-05-18 05:02:00 Outpatient Bui_Q VFP VFP [id number] [facility] 2020-05-15 08:55:00 2020-05-15 08:55:00 Outpatient Bui_Q_WAG VFP VFP [id number] [facility] 2020-05-10 06:28:00 2020-05-10 06:28:00 Outpatient Bui_Q_WAG VFP VFP [id number] [facility] 2020-05-09 04:52:00 2020-05-09 04:52:00 Outpatient Bui_Q_WAG VFP VFP [id number] [facility] 2020-05-09 00:00:00 2020-05-09 00:00:00 Terry Rocha MD: [address] [address] , Ph. VFP [place] - [facility] - VM_[facility] ([place]) [id number] [facility] 2020-04-20 02:40:00 2020-04-20 02:40:00 Outpatient Bui_Q VFP VFP [id number] [facility] 2020-04-18 10:25:00 2020-04-18 10:25:00 Outpatient Bui_Q VFP VFP [id number] [facility] 2020-01-31 01:16:00 2020-01-31 01:16:00 Outpatient Bui_Q VFP VFP [id number] [facility] 2019-10-24 06:40:00 2019-10-24 06:40:00 Outpatient Bui_Q VFP VFP [id number] [facility] 2019-10-05 02:03:00 2019-10-05 02:03:00 Outpatient Bui_Q VFP VFP [id number] [facility] 2019-10-05 02:03:00 2019-10-05 02:03:00 Outpatient Bui_Q VFP [facility] [id number] [facility] 2019-09-28 00:00:00 2019-09-28 00:00:00 Terry Rocha MD: [address] [facility], [address], [place] [address] , Ph. VF [place] - [facility] - VM_HOU_[facility] (W[place]) [id number] [facility] 2019-08-21 00:00:00 2019-08-21 00:00:00 Keara Hay MD: [address], [address], [place] [address] , Ph. VF [place] - [facility] - VFP-Pearlan d [id number] [facility] 2019-07-04 00:00:00 2019-07-04 00:00:00 Terry Rocha MD: [address], [address], [place] [address] , Ph. VFP [place] - [facility] - VFP-[place]lan d [id number] [facility] 2019-04-10 00:00:00 2019-04-10 00:00:00 Terry Rocha MD: [address], [address], [place] [address] , Ph. VF [place] - [facility] - VFP-Pearlan d [id number] [facility] Results Test Description Test Time Test Comments Results Result Co mments Source [facility] Practicepregnancy test, [id number] 10:59:00* Test Item Value Reference Range Interpretation Comme nts HCG (test code = HCG) negative [facility]
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
[2024-11-17 22:47] VITALS: BP 117/69; TEMP 98.1; O2SAT 98
== END 2024-11-17 22:40 | disposition home or self-care (01) ==
LOC: ER 19:27
DX: M54.2 Cervicalgia (principal); M54.9 Dorsalgia, unspecified; V44.5XXA Car driver injured in collision with heavy transport vehicle or bus in traffic accident, initial encounter
CPT/HCPCS: 71250; 72125; 74176; 99282